=== PATIENT | female | born 1980 | race Caucasian/White ===

== ENCOUNTER 2020-10-23 20:57 | Emergency (ER) | payer BC ==
[~2020-10-23] VITALS: Ht 160 cm; Wt 94.0 kg
[2020-10-23] MEDS ORDERED: IBUPROFEN 600 MG TABLET. PO ONE (21:45)
[2020-10-23] MEDS ORDERED: ACETAMINOPHEN 500 MG TABLET PO ONE (21:45)
--- NOTE | 2020-10-23 21:54 | PHYS DOC ---
Adult General Chief Complaint Chief Complaint: ANKLE PROBLEM HPI HPI Patient is a 39-year-old female who presents with bilateral ankle pain. States that she twisted her ankle a couple of weeks ago, and it was the left foot it was getting better but twisted it again today and when she did twisted her right ankle as well. States that the are a little swollen and having some pain, 5 out of 10, dull and achy in nature. States she is able to walk but it causes her some discomfort. Denies any other injuries. Review of Systems Review of Systems Review of systems otherwise unremarkable except noted in HPI Current Medications Current Medications Current Medications Medications (Trade) Dose Ordered Sig/Mary Start Time Stop Time Status Last Admin Dose Admin Acetaminophen (Tylenol) 1,000 mg 1X ONCE 10/23/20 21:45 10/23/20 21:46 UNV Ibuprofen (Motrin) 600 mg 1X ONCE 10/23/20 21:45 10/23/20 21:46 UNV Allergies Allergies Allergies Coded Allergies Type Severity Reaction Last Updated Verified fluconazole Allergy Unknown 10/23/20 Yes Uncoded Allergies Type Severity Reaction Last Updated Verified SULFA Allergy Unknown 10/23/20 Physical Exam Physical Exam Constitutional: Well developed, well nourished, no acute distress, non-toxic appearance. [] Cardiovascular:Heart rate regular rhythm, no murmur [] Lungs & Thorax: Bilateral breath sounds clear to auscultation [] Skin: Warm, dry, no erythema, no rash. [] Back: No tenderness, Extremities: Neurovascular exam intact. Range of motion intact. Mild tenderness and swelling about the left and right ankle, left greater than right with no obvious deformities Neurologic: Alert and oriented X 3, no focal deficits noted. [] Psychologic: Affect normal, judgement normal, mood normal. [] EKG EKG [] Radiology/Procedures Radiology/Procedures [] Two view bilateral ankle radiographs 10/23/2020 CLINICAL HISTORY: Fall. Bilateral ankle pain. AP and lateral digital radiographs of both ankles were obtained. The left and right ankle mortise are intact. No fracture or dislocation of either ankle is seen. Soft tissue swelling is seen adjacent to the lateral malleolus bilaterally. Mild to moderate enthesophyte formation is seen involving the posterior calcaneus bilaterally. IMPRESSION: No fracture or dislocation of either ankle is seen. Electronically signed by: Mika Sherman MD (10/23/2020 10:23 PM) [id number] Heart Score C/O Chest Pain: No Risk Factors: Risk Factors: DM, Current or recent (<one month) smoker, HTN, HLP, family history of CAD, obesity. Risk Scores: Risk Factors: DM, Current or recent (<one month) smoker, HTN, HLP, family history of CAD, obesity. Course & Med Decision Making Course & Med Decision Making Patient is a 39-year-old female who presents with bilateral ankle pain after twisting them and falling Vital signs not concerning. Physical exam noted above. Given ice pack. Given Tylenol and ibuprofen. Imaging with no acute osseous abnormalities. Discussed all findings with patient and given pain recommendations for home. Advised to follow-up with primary care physician. Gave return precautions to the ED. Patient grateful, verbalized understanding and agreed with plan of discharge. [] Dragon Disclaimer Dragon Disclaimer This electronic medical record was generated, in whole or in part, using a voice recognition dictation system. Departure Departure: Impression: Primary Impression: Ankle sprain Disposition: HOME / SELF CARE / HOMELESS Condition: GOOD Referrals: RAMY RUIZ PAC (PCP) Patient Instructions: Ankle Sprain, RICE - Routine Care for Injuries Additional Instructions: Thank you for coming into the emergency department tonight and allowing us to take care of you. Please continue a Tylenol, ibuprofen and ice regimen as tolerated and needed. Your imaging did not show any broken bones or dislocations. Please manage as discussed and in your education. Please call your primary care physician first thing in the morning to update on ED visit and set up a follow-up as needed. Please come back to the emergency department immediately with new or concerning symptoms as discussed. FERNIE FERNANDEZ MD Oct 23, 2020 21:54
[2020-10-23 21:55] VITALS: BP 152/96
--- NOTE | 2020-10-23 22:26 | RAD ---
Two view bilateral ankle radiographs 10/23/2020 CLINICAL HISTORY: Fall. Bilateral ankle pain. AP and lateral digital radiographs of both ankles were obtained. The left and right ankle mortise are intact. No fracture or dislocation of either ankle is seen. Soft tissue swelling is seen adjacent to the lateral malleolus bilaterally. Mild to moderate enthesophyte formation is seen involving the pos terior calcaneus bilaterally. IMPRESSION: No fracture or dislocation of either ankle is seen. Electronically signed by: Mika Sherman MD (10/23/2020 10:23 PM) [id number]
== END 2020-10-23 22:57 | disposition home or self-care (01) ==
LOC: ER 20:57
DX: S93.401A Sprain of unspecified ligament of right ankle, initial encounter (principal); S93.402A Sprain of unspecified ligament of left ankle, initial encounter; X50.9XXA Other and unspecified overexertion or strenuous movements or postures, initial encounter; Y93.89 Activity, other specified; Y92.89 Other specified places as the place of occurrence of the external cause; Y99.8 Other external cause status
CPT/HCPCS: 73600; 99283